=== PATIENT | female | born 1980 | race Caucasian/White ===

== ENCOUNTER 2020-11-03 12:54 | Outpatient (CLI) | payer OTHER, SELFPAY ==
--- NOTE | 2020-11-03 13:02 | XR_ITS ---
WS: [id number] Lumbar spine, 3 views, 11/03/2020 Clinical Data: LOW BACK PAIN Comparison: None. Findings: No compression fractures or subluxation is seen. No disc space narrowing is seen. The transverse proc esses and SI joints are normal. There is a 0.5 cm stone overlying the right kidney. XR/XR lumbar spine 2-3V* [id number] Impression: 1. Negative lumbar spine. 2. Small right renal calculus.
== END 2020-11-03 12:55 | disposition home or self-care (01) ==
PROVIDERS: PCP Family Medicine; Visit Provider Family Medicine
DX: M54.5 Low back pain (principal); N20.0 Calculus of kidney
CPT/HCPCS: 72100

== ENCOUNTER 2020-11-15 13:24 | Outpatient (CLI) | payer OTHER, SELFPAY ==
--- NOTE | 2020-11-15 13:29 | XR_ITS ---
WS: [id number] HIPS BILATERAL TECHNIQUE: 5 views bilateral hips Including pelvis CLINICAL INFORMATION: PAIN IN RIGHT AND LEFT HIP COMPARISON: None. 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 Sclerosis involving the right superolat eral acetabulum. Slight hypertrophic changes along the acetabulum bilaterally. Normal pubic rami. No acute fractures. Sclerosis right inferior sacroiliac joint. 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
== END 2020-11-15 13:25 | disposition home or self-care (01) ==
PROVIDERS: PCP Family Medicine; Visit Provider Family Medicine
DX: M25.551 Pain in right hip (principal); M25.552 Pain in left hip
CPT/HCPCS: 73522